=== PATIENT | female | born 1960 | race Caucasian/White ===

== ENCOUNTER 2018-04-21 07:50 | Day surgery (SDC) | payer OTHER ==
--- NOTE | 2018-04-20 13:59 | EKG ---
Test Date: 2018-04-20 Test Time: 13:11:47 Scrap Kettle Tender: CHERI MEASUREMENT RESULTS: Intervals: Rate: 87 ND: 178 QRSD: 82 QT: 368 QTc: 442 [place]: P: 65 ND: 178 QRS: -4 T: 62 INTERPRETIVE STATEMENTS: Normal sinus rhythm Low voltage QRS Borderline ECG No previous ECG available for comparison Electronically Signed On 04-20-18 13:58:47 DIRECTOR STATISTICAL PROGRAMMING by Lenny Greene
[~2018-04-21 07:50] MED LIST: Ringers Lactate 1,000 ML IV SCH
[2018-04-21] MEDS ORDERED: Ringers Lactate 1,000 ML IV ONE (08:24)
[2018-04-21] MEDS ORDERED: LIDOCAINE 1% W/EPI 1:100,000 MDV 50 ML VIAL ONE (10:39)
[2018-04-21] MEDS ORDERED: PROPOFOL 200 MG/20 ML VIAL IV ONE (10:46)
[2018-04-21] MEDS ORDERED: FENTANYL CITR 100 MCG/2 ML ONE (10:46)
[2018-04-21] MEDS ORDERED: LIDOCAINE 2% MPF 5 ML VIAL ONE (10:46)
[2018-04-21] MEDS ORDERED: MIDAZOLAM HCL 2 MG/2 ML INJ ONE (10:46)
[2018-04-21] MEDS ORDERED: KETOROLAC 30 MG/ML INJ ONE (11:23)
[2018-04-21] MEDS ORDERED: IBUPROFEN 200 MG TAB PO ONE (11:58)
--- NOTE | 2018-04-21 23:34 | OP ---
Date of Procedure: 04/21/2018 Surgeon: Stephanie Gonsalez MD Preoperative Diagnosis: Postmenopausal bleeding. Postoperative Diagnoses: Postmenopausal bleeding and a large endometrial polyp. Procedures Performed: Hysteroscopy, polypectomy and D and C. Anesthesia: MAC plus paracervical block. Specimens: Polyp and endometrial curettings. Condition: Stable. Complications: None. Drains: None. Findings: Endometrial cervix was unremarkable. A tip of a polyp was seen at the cervical os. This was the tip of the polyp that was arising from the anterolateral wall on the left to the lower part o f the endometrial canal. The entire polyp was removed. The endometrial cavity appeared to be unrema rkable. The rest of the endometrium unremarkable. Indications: The patient is a 57-year-old, who had developed postmenopausal bleeding 2 years after h er last period. Mother with history of breast cancer and uterine cancer, diagnosed in 80s. Maternal grandmother and mother with lymphoma in their 70s. No personal history of cancer. Last observed bl eeding was 1 month ago. She still has some discharge with no other problems. Description Of Procedure: After doing a transvaginal ultrasound, the endometrial stripe was only 5.4 mm; however given the fact that she had a good amount of bleeding lasting 3 days 2 years after menop ause, the patient having morbid obesity and the risk factors of hypertension and family history, I co unseled the patient that she needed endometrial cavity visualization and sampling, so in order to do this due to the menopausal status. We [facility] The [facility] offered the benefit of anesthesia, so she consented for this. Then, she was ta oracio to the hospital. After informed consent was re-verified, she was taken to the OR, placed in a [place] fashion. MAC was given, placed in a dorsal lithotomy position using Reuben stirrups. After time -out was done, a speculum was placed to expose the cervix. Anterior lip injected with 1% lidocaine m ixed with 1:100,000 epinephrine, 8 cc was injected here. Then, another 6 cc of each were injected on the 4 and 8 o'clock positions of the cervicovaginal junction. Prep x3 with Betadine was done. The tip of the polyp at the cervix was anticipated to be a cervical polyp, so a hose clamp was taken and this was twisted and removed. However, there seemed to be more protuberant tissue that was seen afte r the original amount was removed. Anterior lip grasped with Allis clamps. Direct hysteroscopy was done with a SlimLine hysteroscope, 3 0-degree lens and normal saline was conducted. The cervical canal was traversed under direct vision right next to the polypoid mass and this was traced all the way down to the lower part of the anterol ateral left wall of the endometrial canal. There was a large polyp encompassing the entire area. Th e endometrium appeared to be unremarkable. Both tubal ostia were visualized. The scope was pulled o ut after the tip of the polyp was loosened up completely to release the polyp. Then Augie's forcep s was used in 3 places and the entire polyp was removed. The scope was reintroduced after verifying that the entire polyp was removed. The scope was removed as well. Endometrial curettings were perfo rmed. All this was handed off for permanent pathology. She was recovered from anesthesia and taken to the PACU in stable condition after instrument and sponge counts were correct at the end of the rolando e. She will follow up with me in 1 week. RAJAN/BAKARI Voice ID: [id number] Report ID: [id number]
== END 2018-04-21 12:19 | disposition home or self-care (01) ==
LOC: OR 07:50
PROVIDERS: ATTEND Obstetrics & Gynecology
PROC: 0UDB7ZX Extraction of Endometrium, Via Natural or Artificial Opening, Diagnostic (ICD-10-PCS; 2018-04-21)
PROC: 0UJD8ZZ Inspection of Uterus and Cervix, Via Natural or Artificial Opening Endoscopic (ICD-10-PCS; 2018-04-21)
PROC: 0UB97ZX Excision of Uterus, Via Natural or Artificial Opening, Diagnostic (ICD-10-PCS; principal; 2018-04-21 09:30)
DX: N95.0 Postmenopausal bleeding (principal); N84.0 Polyp of corpus uteri; I10 Essential (primary) hypertension; E66.01 Morbid (severe) obesity due to excess calories; Z68.42 Body mass index [BMI] 45.0-49.9, adult; Z79.82 Long term (current) use of aspirin; Z82.49 Family history of ischemic heart disease and other diseases of the circulatory system; Z80.3 Family history of malignant neoplasm of breast; Z80.0 Family history of malignant neoplasm of digestive organs; Z83.3 Family history of diabetes mellitus; Z80.49 Family history of malignant neoplasm of other genital organs; Z80.7 Family history of other malignant neoplasms of lymphoid, hematopoietic and related tissues
CPT/HCPCS: 81025; 88305; 93005; J2250; J2704; J3010